=== PATIENT | female | born 1960 | race Caucasian/White ===

== ENCOUNTER → 2017-12-13 | Outpatient (CLI) | payer OTHER ==
[~2017-12-13] MED LIST: BENADRYL25 M2 PO
== END | disposition home or self-care (01) ==
LOC: MAMMO 13:30
DX: N64.52 Nipple discharge (principal)

== ENCOUNTER → 2019-03-27 | Outpatient (CLI) | payer OTHER ==
[2019-03-27 14:14] LABS: FREE T4 0.92 ng/dl (0.76-1.46)
[2019-03-27 14:19] LABS: THYROID STIM HORMONE (HS) 1.63 uIU/ml (0.358-4.75)
== END | disposition home or self-care (01) ==
LOC: LAB 12:50 → US 13:00
PROVIDERS: Otolaryngology Plastic Surgery within the Head & Neck
DX: E04.1 Nontoxic single thyroid nodule (principal)

== ENCOUNTER → 2019-09-24 | Outpatient (CLI) | payer OTHER | END | disposition home or self-care (01) | LOC: RAD 11:06 | DX: M19.012 Primary osteoarthritis, left shoulder (principal); M17.11 Unilateral primary osteoarthritis, right knee ==

== ENCOUNTER → 2020-04-08 | Outpatient (CLI) | payer OTHER ==
[~2020-04-08] MED LIST changes: +MOBIC7.5 MG PO
== END | disposition home or self-care (01) ==
LOC: US 03-24 15:00
PROVIDERS: ATTEND Otolaryngology Plastic Surgery within the Head & Neck
DX: E04.1 Nontoxic single thyroid nodule (principal)

== ENCOUNTER 2020-05-28 09:44 | Emergency (ER) | payer OTHER ==
[~2020-05-28] VITALS: Wt 79.4 kg
[~2020-05-28 09:44] MED LIST changes: -MOBIC7.5 MG PO
[2020-05-28] MEDS ORDERED: MOBIC7.5 MG PO (12:24)
== END 2020-05-28 12:31 | disposition home or self-care (01) ==
LOC: ED 09:44
DX: S20.20XA Contusion of thorax, unspecified, initial encounter (principal); Z79.899 Other long term (current) drug therapy; Z90.49 Acquired absence of other specified parts of digestive tract; Z90.711 Acquired absence of uterus with remaining cervical stump; W19.XXXA Unspecified fall, initial encounter; Y93.89 Activity, other specified; Y92.89 Other specified places as the place of occurrence of the external cause; Y99.8 Other external cause status

== ENCOUNTER → 2020-12-02 | Outpatient (CLI) | payer OTHER ==
[~2020-12-02] MED LIST changes: +MOBIC7.5 MG PO
== END | disposition home or self-care (01) ==
LOC: MAMMO 11-05 14:00
PROVIDERS: ATTEND Internal Medicine
DX: Z12.31 Encounter for screening mammogram for malignant neoplasm of breast (principal)

== ENCOUNTER → 2021-10-16 | Outpatient (CLI) | payer OTHER | END | disposition home or self-care (01) | LOC: US 15:28 | PROVIDERS: ATTEND Surgery | DX: R22.31 Localized swelling, mass and lump, right upper limb (principal) ==

== ENCOUNTER → 2022-09-29 | Outpatient (CLI) | payer OTHER | END | disposition home or self-care (01) | LOC: RAD 16:39 | PROVIDERS: ATTEND Internal Medicine | DX: Z01.818 Encounter for other preprocedural examination (principal); M47.812 Spondylosis without myelopathy or radiculopathy, cervical region; M85.88 Other specified disorders of bone density and structure, other site ==

== ENCOUNTER → 2023-03-31 | Outpatient (CLI) | payer OTHER ==
[2023-03-31 16:22] LABS: FREE T4 1.15 ng/dl (0.89-1.76)
== END | disposition home or self-care (01) ==
LOC: LAB 14:39 → US 15:00
PROVIDERS: ATTEND Otolaryngology Plastic Surgery within the Head & Neck
DX: E04.1 Nontoxic single thyroid nodule (principal)